=== PATIENT | male | born 1965 | race Caucasian/White ===

== ENCOUNTER 2023-11-05 17:00 | Emergency (ER) | payer BC ==
[2023-11-05 17:18] VITALS: BP 130/84; O2SAT 99
--- NOTE | 2023-11-05 17:25 | ED Physician Documentation ---
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 Today progressively he developed floaters and flashers in the left eye with progressive worsening of vision. He has an appointment with his apprentice/lineman, Zackary Candelaria tomorrow. PD PAST MEDICAL HISTORY - Past Medical History Past Medical History: Yes Musculoskeletal: Rheumatoid arthritis - Past Surgical History Past Surgical History: Yes Ortho: Other HEENT: Other - Allergies Allergies/Adverse Reactions: Allergies Allergy/AdvReac Type Severity Reaction Status Date / Time codeine Allergy Hives Verified 11/05/23 17:19 - Social History Does the pt smoke?: No Smoking Status: Never smoker Does the pt drink ETOH?: No Does the pt have substance abuse?: No - Immunizations Immunizations are current?: Yes - POLST Patient has POLST: No PD ED PE NORMAL - Vitals Vital signs reviewed: Yes - General General: Alert and oriented X 3, No acute distress - HEENT HEENT: EOMI, Other (The right pupil is nonreactive. The left pupil is reactive. Extraocular movements are normal. I am not able to ascertain any useful data from nondilated ophthalmologic exam. Left eye vision 20/30) - Neuro Neuro: Alert and oriented X 3 - Psych Psych: Normal mood, Normal affect Results - Vitals Vitals: Vital Signs - 24 hr 11/05/23 17:09 Temperature 36.5 C Heart Rate 90 Respiratory 16 Rate Blood Pressure 130/84 H O2 Saturation 99 Oxygen O2 Source Room air PD Medical Decision Making - ED course ED course: 57-year-old gentleman with acute vision threat from what sounds like a posterior issue. He was seen immediately after triage at the behest of the triage nurse and I spoke with his apprentice/lineman, Dr. Candelaria who recommended that if his visual acuity was normal or near normal he should go down to [facility]. His visual acuity on the left was 20/30 and I recommended transfer to [facility] which initially the patient did not want to do citing fears about ambulance bills etc. But when we talked I impressed upon him that since he is already blind in the other eye this acute threat is worrisome. Subsequently he wanted to leave immediately and as such signed out AMA. Departure - Departure Disposition: Against Medical Advice Clinical Impression: Vision loss Condition: Serious Forms: PCP List Discharge Date/Time: 11/05/23 17:46
== END 2023-11-05 17:46 | disposition left against medical advice (07) ==
LOC: ED 17:00
DX: H43.392 Other vitreous opacities, left eye (principal); H53.8 Other visual disturbances; H54.40 Blindness, one eye, unspecified eye; Z53.29 Procedure and treatment not carried out because of patient's decision for other reasons
CPT/HCPCS: 99282; 99284